=== PATIENT | female | born 1980 | race Caucasian/White ===

== ENCOUNTER 2018-01-09 12:36 | Emergency (ER) | payer OTHER ==
[~2018-01-09] VITALS: Ht 182.9 cm; Wt 101.0 kg
[2018-01-09 12:49] VITALS: BP 127/82; PULSE 63; RESP 16; TEMP 98.5; O2SAT 100
--- NOTE | 2018-01-09 13:33 | PD ---
HPI Chief Complaint: Exposure to Blood/Body Fluids Time Seen by Provider: 13:08 Travel History International Travel<30 days: No Contact w/Intl Traveler<30days: No Traveled to known affect area: No History of Present Illness HPI 37-year-old female presents to the emergency department for evaluation after she had a needlestick to the dorsal aspect of her left hand. Patient states as well as with a suture needle. Patient states her tetanus immunization is up-to- date. She has no medical problems and takes no prescribed medications. She cleaned it well. Mild severity. PFSH Past Medical History Medical History: Denies Significant Hx Influenza Vaccination: Yes ?: Not LMP: 12/19/17 Past Surgical History Eye Surgery: Yes (LAZY EYE SX) Social History Alcohol Use: Yes (OCCASIONALLY) Tobacco Use: No Substance Use: No Allergies-Medications (Allergen,Severity, Reaction): Coded Allergies: No Known Allergies (Unverified , 01/09/18) Review of Systems Except as stated in HPI: all other systems reviewed are Neg Physical Exam Narrative GENERAL: Well-nourished, well-developed female patient, ambulatory. Afebrile. SKIN: Focused skin assessment warm/dry. Patient has small pinprick noted to the left dorsal hand over the third MCP joint. No active bleeding HEAD: Normocephalic. Atraumatic. EYES: No scleral icterus. No injection or drainage. NECK: Supple, trachea midline. No JVD or lymphadenopathy. RESPIRATORY: No accessory muscle use. MUSCULOSKELETAL: No cyanosis, or edema. Data Data Last Documented VS Vital Signs Date Time Temp Pulse Resp B/P (MAP) Pulse Ox O2 Delivery O2 Flow Rate FiO2 01/09/18 12:49 98.5 63 16 127/82 (97) 100 Orders Orders Ed Discharge Order (01/09/18 13:34) MDM Medical Decision Making Medical Screen Exam Complete: Yes Emergency Medical Condition: Yes Medical Record Reviewed: Yes Differential Diagnosis Needlestick versus exposure to body fluids versus other Narrative Course 37-year-old female presents to the emergency department after she was stuck by a suture needle to her left hand. Source patient will be tested. Labs are drawn on this patient. PEP treatment is not recommended at this time due to minor exposure. She verbalizes agreement to this. 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 Med/Other Pt SpecificInfo: No Change to Meds Disposition: 01 DISCHARGE HOME Condition: Stable Cynthia Ballesteros January 09, 2018 13:33
== END 2018-01-09 14:18 | disposition home or self-care (01) ==
LOC: NEPD 12:36
DX: S61.432A Puncture wound without foreign body of left hand, initial encounter (principal); W27.3XXA Contact with needle (sewing), initial encounter
CPT/HCPCS: 99281